=== PATIENT | female | born 1985 | race Caucasian/White ===

== ENCOUNTER 2023-11-18 10:22 | Emergency (ER) | payer OTHER, SELFPAY ==
[2023-11-18 10:25] VITALS: BP 166/77
[2023-11-18 10:54] LABS: COVID-19 Antigen Negative (Negative)
--- NOTE | 2023-11-18 11:18 | ED.GENMED ---
History of Present Illness
General
Chief Complaint: Cold/Flu/URI Symptoms
Source: patient
Exam Limitations: none
Time Seen by Provider: 11/18/23 10:28
Nursing documentation reviewed up to this point in time: agreed with
Travel History
Have you had any contact with someone who has COVID-19?: No
Do you have any symptoms of coronavirus? Fever > 100 degrees, chills, cough, shortness of breath, sore throat, loss of taste or smell, muscle aches, or headache?: Yes
Symptoms:: fever
History of Present Illness
History of Present Illness:
Patient is a 38-year-old female who is 20 weeks presents to the ER complaining of runny nose nasal congestion sore throat low-grade fevers for the past several days. She denies any abdominal pain vaginal bleeding. No other sick contacts
at home.
Past History
Past History
ED Past Medical History: None
Social History
Tobacco: Non-smoker
Alcohol: None
Drug: None
Review of Systems
Review of Systems
Allergies reviewed?: Yes
All Other Systems: ROS reviewed and negative except as documented in HPI and ROS
Constitutional: Reports fever
EENT: Reports sore throat and runny nose
Respiratory: Reports no symptoms; Denies cough or trouble breathing
Cardiac: Reports no symptoms
ABD/GI: Reports no symptoms; Denies abdominal pain, nausea or vomiting
: Reports other (No vaginal bleeding )
Musculoskeletal: Reports no symptoms
Skin: Reports no symptoms; Denies rash
Neurological: Reports no symptoms
Psychiatric: Reports no symptoms
Phy Exam
General Physical Exam
General Presentation: no apparent distress
General age: appears stated age
General Skin: warm and dry
General Habitus: normal
General Mental: alert
General Hydration: appears well hydrated
ENT Exam
ENT Exam: EOMI, neck supple, pharyngeal erythema and other (No exudate to tonsils tolerating secretions well no drooling no trismus)
Eye Exam
Eye Exam: PERRL and EOMI
Eye Exam General: PERRL: bilateral and EOM intact: bilateral
Cardiovascular Exam
Cardiovascular Exam: regular rate/rhythm, no murmur and normal peripheral pulses
Pulmonary Exam
Pulmonary Exam: lungs clear
Neurological Exam
Neurological Exam: alert and oriented x3
Musculoskeletal Exam
Musculoskeletal Exam: full ROM
Skin Exam
Skin Exam: normal color and warm/dry
Psychiatric Exam
Psychiatric Exam: normal mood/affect
Course
Orders/Labs/Results
Orders:
Orders
11/18/23 10:29
COVID-19 Antigen Urgent
Source: Nasal Swab
Influenza A+B Rapid Molecular Urgent
NADER Source: Nasal Swab
Specimen Description:
Date Specimen was Collected: 11/18/23
Time Specimen was Collected: 10:27
Rapid Strep Group A Urgent
NADER Source: Throat/Pharynx
Specimen Description:
Date Specimen was Collected: 11/18/23
Time Specimen was Collected: 10:27
11/18/23 11:30
Heart Tones ONCE
Vital Signs
Initial and Last Documented VS:
Initial Vital Signs
Temp Pulse Resp BP Pulse Ox
98.0 F 86 17 166/77 99
11/18/23 10:25 11/18/23 10:25 11/18/23 10:25 11/18/23 10:25 11/18/23 10:25
Last Documented Vital Signs
Temp Pulse Resp BP Pulse Ox
98.0 F 85 20 108/68 98
11/18/23 10:25 11/18/23 11:44 11/18/23 11:44 11/18/23 11:44 11/18/23 11:44
MDM/Problems Addressed
Differential Diagnosis Includes:
Not limited to strep throat COVID viral syndrome influenza
MDM/Problems Addressed:
Symptoms are consistent with viral syndrome. Patient no acute distress nontoxic afebrile. On exam throat is minimally red tolerating secretions well no exudate lungs are clear COVID-negative rapid strep negative flu negative. Will DC home with
supportive care. Patient is 20 weeks heart tones in the 130s checked by RN patient has no complaints.
Chronic conditions affecting care:
20 weeks with no complaints
*Critical Care Note
Total Time (30-74mins, 75-104mins- exclusive of procedures): Not Applicable
ED Attending Note
-
Portions of this chart may have been created with voice recognition software.� Occasional wrong word or��sound alike� substitutions may have occurred due to the inherent limitations of voice recognition software.
Discharge Plan
Departure
Patient Disposition: Home (Routine Discharge)
Date of Disposition: 11/18/23
Time of Disposition: 11:19
Patient with high blood pressure during this ER visit?: Yes
Condition: Fair
Covid-19: Not Applicable
Discharge Problem:
Acute viral syndrome
Instructions: Viral Syndrome (DC)
Prescriptions:
No Action
amoxicillin 500 mg tablet
500 mg PO TID Qty: 21 0RF
Referrals:
Kimberley Beckwith MD [Family Provider] -
Activity Restrictions/Additional Instructions:
Symptoms are consistent with viral syndrome .
be sure to get plenty of rest.
gargle with warm salt water as discussed.
you may take Tylenol as needed every 4-6 hours. Follow-up with your family doctor in the next several days for reevaluation return if any worsening of symptoms
Interventions
Interventions:
*Risk Screen - Suicide Last Done: 11/18/23 10:25
*General Assessment Last Done: 11/18/23 10:25
*Neglect/Abuse Screening Last Done: 11/18/23 10:25
*ED COVID-19 Vaccine History Last Done: 11/18/23 10:25
*Nursing Disposition Last Done: 11/18/23 11:44
ED- Pulmonary Assessment Last Done: 11/18/23 11:30
Discharge Date and Time
Discharge Date/Time: 11/18/23 11:46
Print Language: URDU
[2023-11-18 11:44] VITALS: BP 108/68
== END 2023-11-18 11:46 | disposition home or self-care (01) ==
LOC: EMR 10:22
PROVIDERS: EMERGENCY PHYSICIAN Emergency Medicine; FAMILY PHYSICIAN Family Medicine
DX: O98.512 Other viral diseases complicating pregnancy, second trimester (principal); B34.9 Viral infection, unspecified; Z3A.20 20 weeks gestation of pregnancy; Z11.52 Encounter for screening for COVID-19; R03.0 Elevated blood-pressure reading, without diagnosis of hypertension
CPT/HCPCS: 99283; 87070; 87502; 87811; 87880